=== PATIENT | female | born 1970 | race Caucasian/White ===

== ENCOUNTER → 2017-07-17 | Emergency (ER) | payer OTHER ==
[~2017-07-17] VITALS: Ht 165.1 cm; Wt 72.6 kg
[~2017-07-17] MED LIST: BACTRIM DS TAB1 EACH PO; DURICEF PO; PERCOCET 5-3251 EACH PO
== END | disposition home or self-care (01) ==
LOC: ER 09:48
DX: R30.0 Dysuria (principal); R10.2 Pelvic and perineal pain

== ENCOUNTER 2018-06-11 09:44 | Emergency (ER) | payer OTHER ==
[~2018-06-11] VITALS: Ht 165.1 cm; Wt 72.6 kg
== END 2018-06-11 14:03 | disposition home or self-care (01) ==
LOC: ER 09:44
DX: J22 Unspecified acute lower respiratory infection (principal)

== ENCOUNTER 2018-06-17 18:53 | Emergency (ER) | payer OTHER ==
[2018-06-17] MEDS ORDERED: MEDROLPACK PO (23:13)
[2018-06-17] MEDS ORDERED: IPRAT-ALBUT 0.5-3 ML IH (23:13)
[2018-06-17] MEDS ORDERED: PROMETH-CODEIN 65 ML PO (23:13)
[2018-06-17] MEDS ORDERED: CEFDINIR300 MG PO (23:13)
[2018-06-17] MEDS ORDERED: BUDESONIDE0.5 MG/2 M IH (23:13)
[2018-06-17] MEDS ORDERED: MUCINEX DM ER1 EAC1 PO (23:13)
== END 2018-06-17 23:32 | disposition home or self-care (01) ==
LOC: ER 18:53
DX: J06.9 Acute upper respiratory infection, unspecified (principal)

== ENCOUNTER 2023-05-18 08:43 | Emergency (ER) | payer OTHER ==
[~2023-05-18] VITALS: Ht 157.5 cm; Wt 81.2 kg
[~2023-05-18 08:43] MED LIST changes: +BUDESONIDE0.5 MG/2 M IH; +CEFDINIR300 MG PO; +IPRAT-ALBUT 0.5-3 ML IH; +MEDROLPACK PO; +MUCINEX DM ER1 EAC1 PO; +PROMETH-CODEIN 65 ML PO
== END 2023-05-18 09:37 | disposition home or self-care (01) ==
LOC: ER 08:43
DX: M25.511 Pain in right shoulder (principal)

== ENCOUNTER 2023-10-16 10:13 | Emergency (ER) | payer OTHER ==
[~2023-10-16] VITALS: Ht 165.1 cm; Wt 77.6 kg
[2023-10-16 11:08] LABS: HEMATOCRIT 38.3 % (36.0-45.00); HEMOGLOBIN 12.6 g/dL (12.0-15.00); MEAN CELL VOLUME 82.7 fL (80.00-100.00); MEAN CORPUSCULAR HEMOGLOBIN 27.3 pg (27.00-32.0); PLATELET COUNT 276 K/uL (150-450); RED BLOOD COUNT 4.63 M/uL (4.00-6.00); RED CELL DISTRIBUTION WIDTH 14.3 % (11.5-14.5)
== END 2023-10-16 14:51 | disposition home or self-care (01) ==
LOC: ER 10:14
PROVIDERS: Emergency Medicine
DX: N93.8 Other specified abnormal uterine and vaginal bleeding (principal)

== ENCOUNTER 2025-03-07 14:38 | Emergency (ER) | payer OTHER ==
[~2025-03-07] VITALS: Ht 165.1 cm; Wt 73.0 kg
[2025-03-07 15:22] VITALS: BP 119/68; O2SAT 98
[2025-03-07] MEDS ORDERED: ORPHENADRINE CITRATE 30 MG/ML AMPUL IM STA (18:51)
[2025-03-07] MEDS ORDERED: KETOROLAC TROMETHAMINE 30 MG VIAL IM STA (18:51)
[2025-03-07] MEDS ORDERED: KETOROLAC TROMETHAMINE 30 MG VIAL ONE (18:54)
[2025-03-07] MEDS ORDERED: ORPHENADRINE CITRATE 30 MG/ML AMPUL ONE (18:55)
[2025-03-07] MEDS ORDERED: DICLOFENAC POTA50 MG PO (21:40)
[2025-03-07] MEDS ORDERED: ZANAFLEX4 MG PO (21:40)
== END 2025-03-07 21:45 | disposition home or self-care (01) ==
LOC: ER 14:38
DX: M62.838 Other muscle spasm (principal)